=== PATIENT | male | born 1950 | race Caucasian/White ===

== ENCOUNTER 2017-05-29 14:41 | Emergency (ER) | payer MEDICARE, OTHER ==
[2017-05-29] MEDS ORDERED: DIPHTH,PERTUSS(ACELL),TET VAC 0.5 ML VIAL IM ONE ×2 (14:59→15:03)
[2017-05-29 15:17] VITALS: BP 140/84
--- NOTE | 2017-05-29 15:23 | ERNOTE ---
Lower Extremity HPI - General Lower Extremities Pain: leg: right Time Seen by Provider: 05/29/17 14:50 Source: patient, family Exam Limitations: no limitations - Immun/Allergies/Home Medications Immunizations: IMMUNIZATION HX Immunizations Up to Date Yes History of Influenza Vaccine Yes Hx Pneumococcal Vaccination Yes Allergies/Adverse Reactions: Allergies Allergy/AdvReac Type Severity Reaction Status Date / Time No Known Allergies Allergy Unverified 05/29/17 14:57 Home Medications: HOME MEDICATIONS Lisinopril [Zestril] 10 mg PO DAILY 05/29/17 [Last Taken Unknown] Omeprazole [Prilosec] 20 mg PO DAILY 05/29/17 [Last Taken Unknown] - History of Present Illness Narrative: Patient was fishing and got a fish hook in his right calf, denies any other injury Date (Duration): 05/29/17 Time (Timing): 14:15 Occurred: just prior to arrival Review of Systems - Review of Systems Constitutional: Present: recent illness - recent chemo and radiation for throat cancer, finished two months ago. Absent: fever ENT: Absent: nose congestion, sore throat Respiratory: Absent: shortness of breath Cardiology: Absent: chest pain Gastrointestinal/Abdominal: Absent: nausea, abdominal pain Genitourinary: Present: no symptoms reported Musculoskeletal: Absent: back pain Skin: Present: See HPI Neurological: Absent: weakness, numbness - Patient's Past Medical History Patient History - Medical: GERD Patient History - Cardiac/Respiratory: Hypertension, Hyperlipidemia Patient History - Cancer: Throat Patient History - Surgical Procedures: No surgical history Patient History - Other: None - Social History Living Situations: home Psych History: No pertinent hx Smoking Status: Former smoker - quit 1999 Alcohol Use: none Drug Use: none - Immunizations Immunizations Up to Date: Yes Hx Pneumococcal Vaccination: Yes History of Influenza Vaccine: Yes Physical Exam - Physical Exam General Appearance: Present: wd/wn, no apparent distress Respiratory: Present: no respiratory distress Extremity Exam: Present: normal except - - fish hool in righr mid calf Neurological Exam: Present: alert, oriented, normal mood/affect Skin Exam: Present: normal color, warm/dry ED Progress - Vital Signs Patient's Vital Signs:: I have reviewed the patient's vital signs. Vital Signs: Vital Signs 05/29/17 14:51 Temperature 36.5 C Pulse Rate 80 Respiratory 12 Rate Blood Pressure 137/89 O2 Sat by Pulse 98 Oximetry - Progress/Reassessment Chief Complaint: Lower Extremity Pain/ Injury Procedures Location: right calf Complications: Pt alannah procedure well Comments: skin cleaned with betaiodine, 2% lidocaine use for local anesthesia, claus covered with 18gauge needle and fish hook removed, minimal bleeding Departure Clinical Impression: Fish hook injury of left lower leg Qualifiers: Encounter type: initial encounter Qualified Code(s): S89.92XA - Unspecified injury of left lower leg, initial encounter - Departure Disposition: Home self-care Condition: Good Instructions: Sliver Removal, Care After Additional Instructions: watch closely for signs of infection call your doctor for follow up as needed
== END 2017-05-29 15:19 | disposition home or self-care (01) ==
LOC: ER 14:41
DX: S81.841A Puncture wound with foreign body, right lower leg, initial encounter (principal); W45.8XXA Other foreign body or object entering through skin, initial encounter; Y93.89 Activity, other specified; Y92.838 Other recreation area as the place of occurrence of the external cause; Z23 Encounter for immunization